=== PATIENT | female | born 1965 | race Caucasian/White ===

== ENCOUNTER 2018-09-30 21:36 | Inpatient (IN) | payer OTHER ==
[~2018-09-30] VITALS: Ht 177.8 cm; Wt 86.2 kg
[~2018-09-30 21:36] MED LIST: ASPI-1153 PO; CLON0.3T PO; FELO10TA3 PO; ISOS60TA4 PO; METO-442 PO; NOR10 PO; SPIR50TA PO
[2018-09-30 22:15] VITALS: BP_SYST 209
[2018-09-30] MEDS ORDERED: hydrALAZINE HCL 20 MG/ML VIAL IVP ONE (22:30)
[2018-09-30 23:31] LABS: BASOPHILS % (AUTO) 0.2 % (0.0-2.0); EOSINOPHILS # (AUTO) 0.3 K/uL (0.0-0.4); EOSINOPHILS % (AUTO) 2.8 % (0.0-4.0); HEMATOCRIT 46.2 % (36-48); HEMOGLOBIN 14.6 g/dL (12.0-16.0); LYMPHOCYTES # (AUTO) 1.3 K/uL (1.0-5.5); LYMPHOCYTES % (AUTO) 11.6 % (20.5-51.5); MEAN CORPUSCULAR HEMOGLOBIN 26 pg (27-31); MEAN CORPUSCULAR HGB CONC 32 % (32-36); MEAN CORPUSCULAR VOLUME 81 fL (79.0-98.0); MONOCYTES # (AUTO) 0.6 K/uL (0.0-1.0); MONOCYTES % (AUTO) 5.1 % (1.7-9.3); NEUTROPHILS # (AUTO) 9.1 K/uL (1.8-7.7); NEUTROPHILS % (AUTO) 80.3 % (40.0-70.0); PLATELET COUNT (AUTO) 187 K/uL (130-430); RED BLOOD CELL COUNT(AUTO) 5.68 MIL/uL (4.2-6.2); RED CELL DISTRIBUTION WIDTH 14.3 % (9.0-15.0); WHITE BLOOD COUNT (AUTO) 11.3 K/uL (4.8-10.8)
[2018-09-30 23:34] LABS: CALCIUM 9.8 mg/dL (8.4-11.0); CREATININE 2.77 mg/dL (0.55-1.30); POTASSIUM 3.7 mmol/L (3.5-5.1)
[2018-09-30 23:39] LABS: ALBUMIN 3.7 g/dL (3.4-4.8); TOTAL BILIRUBIN 0.7 mg/dL (0.0-1.0)
[2018-10-01] VITALS (16 sets, daily range): BP systolic 142–221
[2018-10-01] MEDS ORDERED: LEVOFLOXACIN 500 MG TABLET PO ONE
[2018-10-01] MEDS ORDERED: NACL 0.9% 1,000 ML IV ONE
[2018-10-01] MEDS ORDERED: hydrALAZINE HCL 20 MG/ML VIAL IVP ONE (02:00)
[2018-10-01 03:22] LABS: BILIRUBIN,URINE NEGATIVE (NEGATIVE); BLOOD, URINE 3+ (NEGATIVE); CLARITY/URINE HAZY (CLEAR); COLOR,URINE YELLOW (YELLOW); GLUCOSE,URINE 1+ (NEGATIVE); KETONES,URINE NEGATIVE (NEGATIVE); LEUKOCYTE ESTERASE ,URINE 1+ (NEGATIVE); NITRITE, URINE NEGATIVE (NEGATIVE); PH,URINE 7.5 (5.0-8.0); PROTEIN URINE 3+ (NEGATIVE); UROBILINOGEN,URINE 0.2 (0.2-1.0)
[2018-10-01 03:39] LABS: BARBITURATE, URINE NEGATIVE (NEG <=200); BENZODIAZEPINE, URINE NEGATIVE (NEG <=150); CANNABINOID, URINE NEGATIVE (NEG <=50); COCAINE, URINE NEGATIVE (NEG <=150); METHAMPHETAMINES SCREEN,URINE POSITIVE (NEG <=500); OPIATE, URINE NEGATIVE (NEG <=100); PHENCYCLIDINE SCREEN,URINE NEGATIVE (NEG <=25); UR TRICYCLIC ANTIDEPRESSANTS NEGATIVE (NEG <=300); URINE AMPHETAMINE POSITIVE (NEG <=500); URINE METHADONE NEGATIVE (NEG <=200); URINE OXYCODONE SCREEN NEGATIVE (NEG <=100); URINE PROPOXYPHENE SCREEN NEGATIVE (NEG <=300)
[2018-10-01 03:53] LABS: BACTERIA,URINE MODERATE /HPF (None Seen); RBC,URINE 50-80 /HPF (0-3); WBC,URINE 20-50 /HPF (0-3)
[2018-10-01 03:54] LABS: MUCUS,URINE 1+ /LPF (None Seen)
[2018-10-01] MEDS ORDERED: hydrALAZINE HCL 20 MG/ML VIAL IVP PRN (04:45)
[2018-10-01] MEDS ORDERED: ACETAMINOPHEN 325 MG TABLET PO PRN (05:00)
[2018-10-01] MEDS ORDERED: DOCUSATE SODIUM 100 MG CAPSULE PO PRN (05:00)
[2018-10-01] MEDS ORDERED: HYDROcodone/ACETAMIN 5-325 MG TAB (NORCO/ VICODIN) PO PRN (05:00)
[2018-10-01] MEDS ORDERED: ZOLPIDEM TARTRATE 5 MG TABLET PO PRN (05:00)
[2018-10-01] MEDS ORDERED: MUPIROCIN 2% TOPICAL OINTMENT 22 GM TP PRN (05:00)
[2018-10-01] MEDS ORDERED: LORazepam 2 MG/ML VIAL IVP PRN (05:00)
[2018-10-01] MEDS ORDERED: ONDANSETRON HCL 4 MG/2 ML VIAL IVP PRN (05:00)
[2018-10-01] MEDS ORDERED: MILK OF MAGNESIA 30 ML UDC PO PRN (05:00)
[2018-10-01] MEDS ORDERED: MORPHINE 4 MG/ML INJ. SYRINGE IVP PRN (05:00)
[2018-10-01] MEDS ORDERED: hydrALAZINE HCL 20 MG/ML VIAL ONE (05:35)
[2018-10-01] MEDS ORDERED: NITROGLYCERIN 250 ML IV PRN (05:45)
[2018-10-01] MEDS: cloNIDine HCL 0.1 MG TABLET PO SCH ×3 (08:51→20:59)
[2018-10-01] MEDS ORDERED: SPIRONOLACTONE 50 MG TABLET (ALDACTONE) PO SCH (09:00)
[2018-10-01] MEDS ORDERED: amLODIPine BESYLATE 10 MG TABLET PO SCH (09:00)
[2018-10-01] MEDS ORDERED: NON-FORMULARY MEDICATION (Felodipine (Felodipine Er) 10 MG) PO SCH (09:00)
[2018-10-01] MEDS ORDERED: amLODIPine BESYLATE 5 MG TABLET PO ONE (10:00)
[2018-10-01] MEDS: NACL 0.9% 1,000 ML IV SCH ×2 (10:13→21:00)
[2018-10-01] MEDS: ISOSORBIDE MONONITRATE 30 MG TAB.ER.24H PO SCH (10:20)
[2018-10-01] MEDS: ASPIRIN 81 MG TABLET(ECOTRIN) PO SCH (10:20)
[2018-10-01] MEDS: METOPROLOL TARTRATE 50 MG TABLET PO SCH ×2 (10:22→20:58)
[2018-10-01 10:32] LABS: PHOSPHORUS 3.9 mg/dL (2.7-4.5); THYROID STIMULATING HORMONE 1.78 uIu/mL (0.34-4.82)
[2018-10-01] MEDS: niCARdipine 25 MG in D5W 240 ML IV PRN ×5 (11:35→16:05)
[2018-10-02] VITALS (14 sets, daily range): BP systolic 117–160
[2018-10-02] MEDS: cloNIDine HCL 0.1 MG TABLET PO SCH ×3 (05:09→21:13)
[2018-10-02] MEDS: METOPROLOL TARTRATE 50 MG TABLET PO SCH ×2 (08:46→21:13)
[2018-10-02] MEDS: ASPIRIN 81 MG TABLET(ECOTRIN) PO SCH (08:46)
[2018-10-02] MEDS: ISOSORBIDE MONONITRATE 30 MG TAB.ER.24H PO SCH (08:46)
[2018-10-02 08:55] LABS: CALCIUM 9.4 mg/dL (8.4-11.0); CREATININE 3.23 mg/dL (0.55-1.30); PHOSPHORUS 3.6 mg/dL (2.7-4.5); POTASSIUM 4.1 mmol/L (3.5-5.1)
[2018-10-02] MEDS ORDERED: amLODIPine BESYLATE 5 MG TABLET PO SCH (09:00)
[2018-10-02 09:08] LABS: BASOPHILS % (AUTO) 0.4 % (0.0-2.0); EOSINOPHILS # (AUTO) 0.4 K/uL (0.0-0.4); HEMATOCRIT 39.6 % (36-48); HEMOGLOBIN 12.9 g/dL (12.0-16.0); LYMPHOCYTES % (AUTO) 21.5 % (20.5-51.5); MEAN CORPUSCULAR HEMOGLOBIN 26 pg (27-31); MEAN CORPUSCULAR HGB CONC 33 % (32-36); MEAN CORPUSCULAR VOLUME 81 fL (79.0-98.0); MONOCYTES # (AUTO) 0.8 K/uL (0.0-1.0); MONOCYTES % (AUTO) 8.7 % (1.7-9.3); NEUTROPHILS # (AUTO) 6.3 K/uL (1.8-7.7); NEUTROPHILS % (AUTO) 65.4 % (40.0-70.0); PLATELET COUNT (AUTO) 184 K/uL (130-430); RED BLOOD CELL COUNT(AUTO) 4.91 MIL/uL (4.2-6.2); RED CELL DISTRIBUTION WIDTH 14.9 % (9.0-15.0); WHITE BLOOD COUNT (AUTO) 9.5 K/uL (4.8-10.8)
[2018-10-02] MEDS: LEVOFLOXACIN 500 MG TABLET PO SCH (11:08)
[2018-10-02] MEDS: NACL 0.9% 1,000 ML IV SCH (14:32)
[2018-10-02] MEDS ORDERED: ATORVASTATIN 20 MG TABLET PO SCH (21:00)
[2018-10-03 02:39] VITALS: BP_SYST 151
[2018-10-03] MEDS: cloNIDine HCL 0.1 MG TABLET PO SCH (06:16)
[2018-10-03] MEDS ORDERED: LABE200T28 PO (06:31)
[2018-10-03] MEDS: NACL 0.9% 1,000 ML IV SCH (06:34)
[2018-10-03 06:53] VITALS: BP_SYST 160
[2018-10-03 07:17] LABS: BASOPHILS % (AUTO) 0.5 % (0.0-2.0); EOSINOPHILS # (AUTO) 0.7 K/uL (0.0-0.4); EOSINOPHILS % (AUTO) 8.9 % (0.0-4.0); HEMATOCRIT 37.5 % (36-48); HEMOGLOBIN 12.1 g/dL (12.0-16.0); LYMPHOCYTES # (AUTO) 1.9 K/uL (1.0-5.5); LYMPHOCYTES % (AUTO) 25.7 % (20.5-51.5); MEAN CORPUSCULAR HEMOGLOBIN 26 pg (27-31); MEAN CORPUSCULAR HGB CONC 32 % (32-36); MEAN CORPUSCULAR VOLUME 82 fL (79.0-98.0); MONOCYTES # (AUTO) 0.7 K/uL (0.0-1.0); MONOCYTES % (AUTO) 9.4 % (1.7-9.3); NEUTROPHILS # (AUTO) 4.2 K/uL (1.8-7.7); NEUTROPHILS % (AUTO) 55.5 % (40.0-70.0); PLATELET COUNT (AUTO) 164 K/uL (130-430); RED CELL DISTRIBUTION WIDTH 14.9 % (9.0-15.0); WHITE BLOOD COUNT (AUTO) 7.6 K/uL (4.8-10.8)
[2018-10-03 07:59] LABS: CALCIUM 8.3 mg/dL (8.4-11.0); CREATININE 3.28 mg/dL (0.55-1.30); POTASSIUM 4.1 mmol/L (3.5-5.1)
[2018-10-03] MEDS ORDERED: amLODIPine BESYLATE 5 MG TABLET PO SCH (09:00)
[2018-10-03] MEDS: ISOSORBIDE MONONITRATE 30 MG TAB.ER.24H PO SCH (10:47)
[2018-10-03] MEDS: LEVOFLOXACIN 500 MG TABLET PO SCH (10:47)
[2018-10-03] MEDS: ASPIRIN 81 MG TABLET(ECOTRIN) PO SCH (10:47)
[2018-10-03] MEDS: METOPROLOL TARTRATE 50 MG TABLET PO SCH (10:48)
[2018-10-03 12:00] VITALS: BP_SYST 134
== END 2018-10-03 12:30 | disposition home or self-care (01) | DRG 812 ==
LOC: SED 21:36 → STU 10-01 04:39 → SIC 10-01 07:18 → STU 10-02 16:04 → SMU 10-03 06:11
PROVIDERS: ADMIT Family Medicine; ATTEND Family Medicine
DX: T43.621A Poisoning by amphetamines, accidental (unintentional), initial encounter (principal); N17.0 Acute kidney failure with tubular necrosis; I12.9 Hypertensive chronic kidney disease with stage 1 through stage 4 chronic kidney disease, or unspecified chronic kidney disease; N18.4 Chronic kidney disease, stage 4 (severe); E66.01 Morbid (severe) obesity due to excess calories; I16.9 Hypertensive crisis, unspecified; N39.0 Urinary tract infection, site not specified; E86.0 Dehydration; J32.9 Chronic sinusitis, unspecified; E78.5 Hyperlipidemia, unspecified; N13.9 Obstructive and reflux uropathy, unspecified; I16.0 Hypertensive urgency; Z87.891 Personal history of nicotine dependence; Z91.19 Patient's noncompliance with other medical treatment and regimen; Z68.27 Body mass index [BMI] 27.0-27.9, adult; Z86.73 Personal history of transient ischemic attack (TIA), and cerebral infarction without residual deficits; Z79.899 Other long term (current) drug therapy; Z79.82 Long term (current) use of aspirin; Z88.0 Allergy status to penicillin; Z87.81 Personal history of (healed) traumatic fracture; Z91.14 Patient's other noncompliance with medication regimen; Y92.89 Other specified places as the place of occurrence of the external cause
CPT/HCPCS: 36415; 70450-TC; 71045; 76770; 80048; 80053; 80061; 80307; 81000-TC; 82550-TC; 83036; 83690-TC; 83735-TC; 83880; 84100-TC; 84443-TC; 84484; 85025; 87081; 87086; 93005; 93306; 96361; 96374; 96376; 99285; G0378; J0360; J2405; J3490; J7030; J7060